=== PATIENT | female | born 1955 | race Hispanic/Latino ===

== ENCOUNTER → 2024-01-31 | Outpatient (CLI) | payer OTHER | END | disposition home or self-care (01) | LOC: RAH 10:26 | PROVIDERS: ATTEND Obstetrics & Gynecology | DX: Z12.31 Encounter for screening mammogram for malignant neoplasm of breast (principal) | CPT/HCPCS: 77067 ==

== ENCOUNTER → 2024-11-28 | Outpatient (CLI) | payer OTHER ==
--- NOTE | 2024-11-28 12:50 | HMCIMG ---
THYROID ULTRASOUND INDICATION: Hypothyroidism COMPARISON: None TECHNIQUE: Multiplanar sonographic images of the thyroid gland were obtained earlier in real-time using grayscale and color Doppler technique, and subsequently made available for review. FINDINGS: The right thyroid lobe measures 2.8 x 1.5 x 1.9 cm, and appears normal in echotexture. A couple hypoechoic lesions at the mid to upper portion of the right thyroid lobe without any punctate echogenic foci associated. 1.0 cm hypoechoic solid nodule at the mid to lower portion of the right thyroid lobe. 0.5 cm colloid cyst at the lower pole of the right thyroid lobe. Right thyroid lobe vascularity appears normal. Isthmus measures 0.2 cm in thickness. The left thyroid lobe measures 2.7 x 0.9 x 1.1 cm, and appears normal in echotexture. No nodules or masses identified. Left thyroid lobe vascularity appears normal. IMPRESSION: 1.0 cm right thyroid lobe nodule corresponding to TIRADS Category 4: Moderately suspicious. Follow-up is recommended at 1, 2, 3, and 5 years.
== END | disposition home or self-care (01) ==
LOC: RAH 10:50
PROVIDERS: ATTEND Internal Medicine
DX: E04.1 Nontoxic single thyroid nodule (principal); E07.89 Other specified disorders of thyroid; E03.9 Hypothyroidism, unspecified
CPT/HCPCS: 76536

== ENCOUNTER → 2024-12-15 | Outpatient (CLI) | payer OTHER ==
[2024-12-15 08:39] LABS: INR 0.99 (0.85-1.15); PROTHROMBIN TIME 10.5 SEC (9.6-11.6)
[2024-12-15 08:40] LABS: PARTIAL THROMBOPLASTIN TIME 27.6 SEC (26.3-35.5)
--- NOTE | 2024-12-15 10:00 | NUR ---
U/S GD RT THYROID FNA PROCEDURE PERFORMED BY DR Miguel TREVIÑO. PUNCTURE SITE RT NECK AND PATIENT TOLERATED PROCEDURE WELL. SPECIMEN X 5 COLLECTED AND SENT TO LAB. END OF PROCEDURE AT 0925. BIOPSY NEEDLE REMOVED AND DRESSING APPLIED. NO BLEEDING NOTED. DISCHARGE INSTRUCTIONS GIVEN TO PATIENT AND VERBALIZED UNDERSTANDING. DISCHARGED VIA AMBULATION AT 1000. AAO X3 WITH NO C/O PAIN.
--- NOTE | 2024-12-15 10:02 | HMCIMG ---
Ultrasound-guided thyroid biopsy- Fine-needle aspiration CLINICAL INDICATION: Right thyroid nodule. COMPARISON: None. PROCEDURE: The procedure, with its potential risks and complications, was discussed with the patient, including the option of not performing the procedure. Verbal and written consent was obtained. A time-out was observed to confirm the correct patient, procedure, and site. With the patient in supine position, the target nodule was identified by ultrasound. A skin site was marked, and the skin was prepped and draped in usual sterile fashion. Infiltration of 7 cc of 1% lidocaine into the subcutaneous tissues was performed for local anesthesia. Under ultrasound guidance, 4 passes with a 18 gauge needle were made into the nodule for FNA. Ultrasound immediately postprocedure showed no adjacent hematoma. Patient was observed for 30 minutes, and experienced no immediate postprocedure complications. IMPRESSION: Successful ultrasound-guided FNA.
== END | disposition home or self-care (01) ==
LOC: RAH 07:52
PROVIDERS: ATTEND Internal Medicine
DX: E04.1 Nontoxic single thyroid nodule (principal); E03.9 Hypothyroidism, unspecified; E78.5 Hyperlipidemia, unspecified; Z79.01 Long term (current) use of anticoagulants
CPT/HCPCS: 10005; 36415; 76942; 85610; 85730; 88173; 88305